=== PATIENT | female | born 1995 | race Two or more races ===

== ENCOUNTER 2021-08-20 08:42 | Emergency (ER) | payer SELFPAY ==
[~2021-08-20] VITALS: Ht 177.8 cm; Wt 54.5 kg
--- NOTE | 2021-08-20 09:06 | PHYS DOC ---
Adult General Chief Complaint Chief Complaint: VAGINAL BLEEDING HPI HPI Patient is a 25 year old female who presents with vaginal bleeding yesterday, now resolved this morning. Patient states that she had a positive test at home about 3 weeks ago. She had some suprapubic cramping yesterday which has resolved at this time as well. The patient states the bleeding was fairly heavy. She also complains of bilateral flank pain, left worse than right. No burning with urination, increase in urinary frequency or blood in her urine. Last menstrual period was in May. She is currently 1 para 0. Review of Systems Review of Systems Constitutional: Denies fever Eyes: Denies change in visual acuity or eye pain HENT: Denies sore throat Respiratory: Denies shortness of breath Cardiovascular: Denies chest pain GI: Denies abd pain : Denies dysuria Musculoskeletal: Denies back or extremity injury Integument: Denies rash or skin lesions Neurologic: Denies headache, focal weakness or sensory changes All other systems were reviewed and found to be within normal limits, except as documented in this note. Allergies Allergies Allergies Coded Allergies Type Severity Reaction Last Updated Verified No Known Drug Allergies 08/20/21 No Physical Exam Physical Exam Constitutional: Well developed, well nourished, no acute distress, non-toxic appearance. HENT: Normocephalic, atraumatic, bilateral external ears normal, mucosa moist, n ose normal. Eyes: EOMI, conjunctiva normal, no discharge. Neck: Normal range of motion, supple, no stridor, no meningeal signs. Cardiovascular: Regular rate and rhythm Lungs & Thorax: Bilateral breath sounds clear to auscultation Abdomen: Soft, no tenderness or obvious masses Skin: Warm, dry, no erythema, no rash. Extremities: No tenderness, no cyanosis, no clubbing, ROM intact, no edema. Neurologic: Alert and oriented, normal motor function, normal sensory function, no focal deficits noted. Psychologic: Affect normal, judgement normal, mood normal. Current Patient Data Vital Signs Vital Signs Date Time Temp Pulse Resp B/P (MAP) Pulse Ox O2 Delivery O2 Flow Rate FiO2 08/20/21 12:19 68 111/77 (88) 97 08/20/21 08:51 98.6 16 98.6 Lab Values Laboratory Tests Test 08/20/21 08:56 08/20/21 09:05 08/20/21 09:45 Urine Collection Type Unknown Urine Color Yellow Urine Clarity Clear Urine pH 7.0 (<5.0-8.0) Urine Specific Dalton 1.015 (1.000-1.030) Urine Protein Negative mg/dL (NEG-TRACE) Urine Glucose (UA) Negative mg/dL (NEG) Urine Ketones (Stick) Negative mg/dL (NEG) Urine Blood Negative (NEG) Urine Nitrite Negative (NEG) Urine Bilirubin Negative (NEG) Urine Urobilinogen Dipstick 1.0 mg/dL (0.2 mg/dL) Urine Leukocyte Esterase Negative (NEG) Urine RBC 0 /HPF (0-2) Urine WBC 0 /HPF (0-4) Urine Squamous Epithelial Cells Occ /LPF Urine Bacteria 0 /HPF (0-FEW) POC Urine HCG, Qualitative Hcg positive (Negative) White Blood Count 5.0 x10^3/uL (4.0-11.0) Red Blood Count 4.24 x10^6/uL (3.50-5.40) Hemoglobin 9.1 g/dL (12.0-15.5) L Hematocrit 27.9 % (36.0-47.0) L Mean Corpuscular Volume 66 fL (79-100) L Mean Corpuscular Hemoglobin 22 pg (25-35) L Mean Corpuscular Hemoglobin Concent 33 g/dL (31-37) Red Cell Distribution Width 15.5 % (11.5-14.5) H Platelet Count 197 x10^3/uL (140-400) Neutrophils (%) (Auto) 62 % (31-73) Lymphocytes (%) (Auto) 29 % (24-48) Monocytes (%) (Auto) 5 % (0-9) Eosinophils (%) (Auto) 3 % (0-3) Basophils (%) (Auto) 1 % (0-3) Neutrophils # (Auto) 3.1 x10^3/uL (1.8-7.7) Lymphocytes # (Auto) 1.5 x10^3/uL (1.0-4.8) Monocytes # (Auto) 0.3 x10^3/uL (0.0-1.1) Eosinophils # (Auto) 0.1 x10^3/uL (0.0-0.7) Basophils # (Auto) 0.0 x10^3/uL (0.0-0.2) Platelet Estimate Adequate (ADEQUATE) Hypochromasia Slight Microcytosis Mod Maternal Serum HCG Beta Subunit 8246 mIU/mL (0-5) H Sodium Level 138 mmol/L (136-145) Potassium Level 3.7 mmol/L (3.5-5.1) Chloride Level 104 mmol/L (98-107) Carbon Dioxide Level 23 mmol/L (21-32) Anion Gap 11 (6-14) Blood Urea Nitrogen 6 mg/dL (7-20) L Creatinine 0.6 mg/dL (0.6-1.0) Estimated GFR (Cockcroft-Gault) 120.8 BUN/Creatinine Ratio 10 (6-20) Glucose Level 87 mg/dL (70-99) Calcium Level 7.9 mg/dL (8.5-10.1) L Magnesium Level 1.7 mg/dL (1.8-2.4) L Total Bilirubin 0.3 mg/dL (0.2-1.0) Aspartate Amino Transferase (AST) 13 U/L (15-37) L Alanine Aminotransferase (ALT) 17 U/L (14-59) Alkaline Phosphatase 45 U/L (46-116) L Total Protein 7.5 g/dL (6.4-8.2) Albumin 3.9 g/dL (3.4-5.0) Albumin/Globulin Ratio 1.1 (1.0-1.7) Lipase 125 U/L (73-393) Laboratory Tests 08/20/21 09:45 Laboratory Tests 08/20/21 09:45 EKG EKG [] Radiology/Procedures Radiology/Procedures [] Impressions: PATIENT: CRYSTAL SOTO ACCOUNT: [id number] : 1995 LOCATION: ER AGE: 25 SEX: F EXAM STATUS: REG ER ORD. PHYSICIAN: GURVINDER BEAUCHAMP MD REASON: bleeding PROCEDURE: OB <14 WKS W/TV US OB <14 WKS +TV History: Bleeding. . Comparison: None. Technique: Sonographic examination of the pelvis was performed with transabdominal and transvaginal technique. Findings: The uterus is measures 12.2 x 7.4 x 8.8 cm. The uterus contains a single gestational sac with elongated shape and mean sac diameter of 32 mm. A pole is not identified. There is no evidence of a subchorionic hemorrhage. The right ovary is normal in size and echogenicity, measuring 3.1 x 1.5 x 1.7 cm. The left ovary is obscured by bowel gas There is no evidence of adnexal mass or free fluid. Impression: Intrauterine gestational sac with mean sac diameter of 32 mm and no embryo identified is diagnostic of early failure. (Criteria: Mean sac diameter greater than or equal to 25 mm and no embryo on a transvaginal scan.) Electronically signed by: Matthew Vale MD (08/20/2021 10:54 AM) [id number] DICTATED and SIGNED BY: MATTHEW VALE MD DATE: 08/20/21 [id number] 0 Course & Med Decision Making Course & Med Decision Making Pertinent Labs and Imaging studies reviewed. (See chart for details) [] There is a 25-year-old female who presents with first trimester bleeding. Ultrasound demonstrates findings that are consistent with an incomplete or inevitable miscarriage. Were still waiting for Rh factor on the patient. She will be discharged home with instructions to follow-up with her METAL OR WOOD BLOCKER in a week or so, return to the emergency department if symptoms become worse or other concerns arise, she is stable for discharge at this time. Dragon Disclaimer Dragon Disclaimer This electronic medical record was generated, in whole or in part, using a voice recognition dictation system. Departure Departure Impression: Primary Impression: Incomplete miscarriage Additional Impression: Inevitable spontaneous Disposition: HOME / SELF CARE / HOMELESS Condition: STABLE Referrals: NO PCP (PCP) JUNIOR PITTMAN MD Patient Instructions: Incomplete Miscarriage Problem Qualifiers GURVINDER BEAUCHAMP MD Aug 20, 2021 09:06
[2021-08-20 09:19] LABS: BILIRUBIN,URINE NEGATIVE (NEG); CLARITY,URINE CLEAR; COLOR,URINE YELLOW; NITRITE,URINE NEGATIVE (NEG); PROTEIN,URINE NEGATIVE (NEG-TRACE)
[2021-08-20 09:21] LABS: BACTERIA,URINE 0 /HPF (0-FEW); RBC,URINE 0 /HPF (0-2); WBC,URINE 0 /HPF (0-4)
[2021-08-20 09:58] LABS: BASO % 1 % (0-3); EOS # 0.1 x10^3/uL (0.0-0.7); EOS % 3 % (0-3); HEMATOCRIT 27.9 % (36.0-47.0); HEMOGLOBIN 9.1 g/dL (12.0-15.5); LYMPH # 1.5 x10^3/uL (1.0-4.8); LYMPH % 29 % (24-48); MEAN CORPUSCULAR HEMOGLOBIN 22 pg (25-35); MEAN CORPUSCULAR HGB CONC 33 g/dL (31-37); MEAN CORPUSCULAR VOLUME 66 fL (79-100); MONO # 0.3 x10^3/uL (0.0-1.1); MONO % 5 % (0-9); NEUT # 3.1 x10^3/uL (1.8-7.7); NEUT % 62 % (31-73); PLATELET COUNT 197 x10^3/uL (140-400); RED BLOOD COUNT 4.24 x10^6/uL (3.50-5.40); RED CELL DISTRIBUTION WIDTH 15.5 % (11.5-14.5)
[2021-08-20 10:07] LABS: CALCIUM 7.9 mg/dL (8.5-10.1); CREATININE 0.6 mg/dL (0.6-1.0); GFR 120.8; POTASSIUM 3.7 mmol/L (3.5-5.1)
[2021-08-20 10:13] LABS: ALBUMIN 3.9 g/dL (3.4-5.0); ALBUMIN/GLOBULIN RATIO 1.1 (1.0-1.7); MAGNESIUM 1.7 mg/dL (1.8-2.4); TOTAL BILIRUBIN 0.3 mg/dL (0.2-1.0); TOTAL PROTEIN 7.5 g/dL (6.4-8.2)
[2021-08-20 10:40] LABS: PLT ESTIMATE ADEQUATE (ADEQUATE)
[2021-08-20 10:42] LABS: HYPOCHROMIA SLIGHT; MICROCYTOSIS MOD
--- NOTE | 2021-08-20 10:56 | RAD ---
US OB <14 WKS +TV History: Bleeding. . Comparison: None. Technique: Sonographic examination of the pelvis was performed with transabdominal and transvaginal t echnique. Findings: The uterus is measures 12.2 x 7.4 x 8.8 cm. The uterus contains a single gestational sac with elongated shape and mean sac diameter of 32 mm. A f etal pole is not identified. There is no evidence of a subchorionic hemorrhage. The right ovary is normal in size and echogenicity, measuring 3.1 x 1.5 x 1.7 cm. The left ovary is obscured by bowel gas There is no evidence of adnexal mass or free fluid. Impression: Intrauterine gestational sac with mean sac diameter of 32 mm and no embryo identified is diagnostic o f early failure. (Criteria: Mean sac diameter greater than or equal to 25 mm and no embryo on a transvaginal scan.) Electronically signed by: Matthew Farah MD (08/20/2021 10:54 AM) [id number]
[2021-08-20 12:19] VITALS: BP 111/77
[2021-08-21] MEDS ORDERED: HYDR-2761 PO (10:29)
[2021-08-21] MEDS ORDERED: ONDA-84 PO (10:29)
== END 2021-08-20 13:41 | disposition home or self-care (01) ==
LOC: ER 08:42
DX: O03.4 Incomplete spontaneous abortion without complication (principal)
CPT/HCPCS: 36415; 76801; 76817; 80053; 81001; 81025; 83690; 83735; 84702; 85025; 86900; 86901; 99285-25

== ENCOUNTER 2021-08-21 06:16 | Emergency (ER) | payer SELFPAY ==
[~2021-08-21] VITALS: Ht 177.8 cm; Wt 57.9 kg
--- NOTE | 2021-08-21 07:50 | PHYS DOC ---
Past Medical History Past Surgical History: No Surgical History Smoking Status: Never Smoker Alcohol Use: None General Adult EDM: Chief Complaint: VAGINAL BLEEDING HPI: HPI: Patient is a 25 year old female who presents with lower abdominal cramping and vaginal bleeding. She was seen here yesterday was diagnosed with incomplete/inevitable . This is her first . She is unsure of how far along her gestation was, LMP occurred sometime in May. She had a positive test about 2 weeks ago. She denies vomiting but reports nausea. She does report feeling mildly lightheaded and dizzy. No fall or syncope. She denies any focal abdominal pain or severe pain. She denies any heavier than usual bleeding than yesterday. She denies fevers or chills. She denies urinary symptoms. No previous abdominal or pelvic surgeries. No pelvic or abdominal trauma reported. She indicates that she felt confused when she left the ER yesterday. She was not sure if this would affect her future fertility or not. She did not understand the concept of a miscarriage. She does not have a primary care physician or clamshell engineer. She reports that she does not know how she is supposed to follow-up. Review of Systems: Review of Systems: Constitutional: Denies fever or chills. [] Respiratory: Denies cough or shortness of breath. [] Cardiovascular: Denies chest pain or edema. [] GI: Denies pelvic cramping. No focal abdominal pain. She reports nausea, no vomiting. No bowel habit changes. : Genital bleeding. She denies urinary symptoms. Musculoskeletal: Denies back pain or joint pain. [] Integument: Denies rash. [] Neurologic: Denies headache, focal weakness or sensory changes. Mild dizziness/lightheadedness. No syncope. Psychiatric: Denies depression or anxiety. [] Heart Score: C/O Chest Pain: No Risk Factors: Risk Factors: DM, Current or recent (<one month) smoker, HTN, HLP, family history of CAD, obesity. Risk Scores: Score 0 - 3: 2.5% MACE over next 6 weeks - Discharge Home Score 4 - 6: 20.3% MACE over next 6 weeks - Admit for Clinical Observation Score 7 - 10: 72.7% MACE over next 6 weeks - Early Invasive Strategies Allergies: Allergies: Allergies Coded Allergies Type Severity Reaction Last Updated Verified No Known Drug Allergies 08/20/21 No Physical Exam: PE: Constitutional: Well developed, well nourished, no acute distress, non-toxic appearance. [] HENT: Normocephalic, atraumatic, mucous membranes are moist Eyes: Sclera anicteric, conjunctive are normal Neck: Normal range of motion, no tenderness, supple, no stridor. [] Cardiovascular:Heart rate regular rhythm, was 2 radial and +2 posterior tibial pulses bilaterally Lungs & Thorax: Bilateral breath sounds clear to auscultation [] Abdomen: Abdomen is soft, nondistended, nontender to palpation, no palpable masses organomegaly, no CVA tenderness, normal bowel sounds. Skin: Warm, dry, no erythema, no rash. [] Back: No tenderness, no CVA tenderness. [] Extremities: No tenderness, no cyanosis, no clubbing, ROM intact, no edema. [] Neurologic: Alert and oriented X 3, normal motor function, normal sensory function, no focal deficits noted. [] Psychologic: Affect normal, judgement normal, mood normal. She is pleasant and cooperative. EKG: EKG: [] Radiology/Procedures: Radiology/Procedures: [] Course & Med Decision Making: Course & Med Decision Making Pertinent Labs and Imaging studies reviewed. (See chart for details) IV normal saline boluses given, IV Zofran, IV Toradol given. Hemoglobin is slightly lower today, though not critically low. Quant is decreasing appropriately. I reviewed the patient's previous records, imaging studies and labs. O+ blood type noted. I discussed the findings, differential diagnosis and plan of care with her. I discussed home care instructions. She should adhere to strict pelvic rest, no intercourse, no tampons. She is given outpatient referral for MARKETING SALES SUPERVISOR care. At this time, she is hemodynamically stable, there is no indication for repeat emergent imaging, invasive exams or admission at this time. I explained that if her symptoms worsen, she develops any heavy or uncontrolled bleeding, severe dizziness, more severe pain, weakness, temperature 100.4 or higher, she may need to return. At this time, D&C is not specifically required. She verbalizes understanding. She is discharged with prescriptions for pain medicine and antiemetics. Strict return precautions given. Aixa Disclaimer: Aixa Disclaimer: This electronic medical record was generated, in whole or in part, using a voice recognition dictation system. Departure Departure Impression: Primary Impression: Incomplete Disposition: HOME / SELF CARE / HOMELESS Condition: STABLE Referrals: NO PCP (PCP) JUNIOR PITTMAN MD Patient Instructions: Incomplete Miscarriage, Miscarriage Additional Instructions: Use the pain medicine and nausea medicine as directed/as needed. Stay hydrated, drink plenty of fluids. Adhere to strict pelvic rest, no intercourse, no tampons. Use sanitary pads only. Please return to the ER for temperature 100.4 or higher, more severe uncontrolled pain, if you start bleeding more heavily, passing very large clots or going through more than 1 pad an hour, please return to the ER. Please follow-up with MARKETING SALES SUPERVISOR services. You are given information for this here. Scripts Ondansetron Hcl (ONDANSETRON HCL) 4 Mg Tablet 1 TAB PO PRN Q8HR for vomiting, #20 TAB 1 Refill Prov: JARVIS FIGUEREDO DO 08/21/21 Hydrocodone Bit/Acetaminophen (HYDROCODONE-APAP 5-325 ) 1 Tab Tablet 1 TAB PO PRN Q6HRS PRN for PAIN, #20 TAB 0 Refills Prov: JARVIS FIGUEREDO DO 08/21/21 JARVIS FIGUEREDO DO Aug 21, 2021 07:50
[2021-08-21] MEDS ORDERED: ONDANSETRON PF 4 MG/2 ML VIAL. IVP ONE (08:00)
[2021-08-21] MEDS ORDERED: IV NORMAL SALINE 1000ML BAG 1,000 ML IV ONE (08:00)
[2021-08-21 08:20] LABS: BASO % 0 % (0-3); EOS % 1 % (0-3); HEMOGLOBIN 8.5 g/dL (12.0-15.5); LYMPH # 0.8 x10^3/uL (1.0-4.8); LYMPH % 10 % (24-48); MEAN CORPUSCULAR HEMOGLOBIN 22 pg (25-35); MEAN CORPUSCULAR HGB CONC 32 g/dL (31-37); MEAN CORPUSCULAR VOLUME 68 fL (79-100); MONO # 0.3 x10^3/uL (0.0-1.1); MONO % 4 % (0-9); NEUT # 6.6 x10^3/uL (1.8-7.7); NEUT % 85 % (31-73); PLATELET COUNT 185 x10^3/uL (140-400); RED BLOOD COUNT 3.96 x10^6/uL (3.50-5.40); RED CELL DISTRIBUTION WIDTH 15.2 % (11.5-14.5); WHITE BLOOD COUNT 7.7 x10^3/uL (4.0-11.0)
[2021-08-21] MEDS ORDERED: KETOROLAC 15 MG/ML VIAL. IVP ONE (08:30)
[2021-08-21 08:35] LABS: CALCIUM 8.2 mg/dL (8.5-10.1); CREATININE 0.6 mg/dL (0.6-1.0); GFR 120.8; POTASSIUM 3.5 mmol/L (3.5-5.1)
[2021-08-21 09:21] VITALS: BP 99/58
[2021-08-21] MEDS ORDERED: HYDR-2761 PO (10:29)
[2021-08-21] MEDS ORDERED: ONDA-84 PO (10:29)
== END 2021-08-21 10:40 | disposition home or self-care (01) ==
LOC: ER 06:16
DX: O03.4 Incomplete spontaneous abortion without complication (principal)
CPT/HCPCS: 36415; 80048; 84702; 85025; 96361; 96374; 96375; 99284; J1885; J2405; J7030